=== PATIENT | female | born 1975 | race Caucasian/White ===

== ENCOUNTER 2019-11-20 08:40 | Emergency (ER) | payer OTHER, SELFPAY ==
[~2019-11-20] VITALS: Ht 152.4 cm; Wt 83.9 kg
[2019-11-20 08:55] VITALS: BP 96/48
--- NOTE | 2019-11-20 08:55 | NUR ---
Chilo pepe in [facility] - 11/20/19 at 0957 by EVELYN TENT
--- NOTE | 2019-11-20 09:00 | NUR ---
COVID SWAB DONE.
--- NOTE | 2019-11-20 09:02 | NUR ---
C/O COUGH,FEVER, HEADACHE, LOSS OF TASTE, N/V X 4 DAYS. MOTHER IN LAW HAS COVID +. PT TOOK IBUPROFEWN AT 6 AM TODAY. 96.6, P 85,R 18, [id number]% AT THIS TIME. MED HX: DENIES
[2019-11-20] MEDS ORDERED: ONDANSETRON 4 MG ODT PO ONE (09:30)
[2019-11-20] MEDS ORDERED: ACETAMINOPHEN 325 MG TAB PO ONE (09:30)
--- NOTE | 2019-11-20 10:27 | NUR ---
Patient discharged with v/s stable. Written and verbal after care instructions given and explained. Patient alert, oriented and verbalized understanding of instructions. Ambulatory with steady gait. All questions addressed prior to discharge. ID band removed. Patient advised to follow up with PMD. Rx of TYLENOL &ZOFRAN given. Patient educated on indication of medication including possible reaction and side effects. Opportunity to ask questions provided and answered.
[2019-11-20 10:29] VITALS: BP 110/65
--- NOTE | 2019-11-23 06:25 | NUR ---
LAB WALK IN TO ED GAVE PT RESULT OF SARS COV2 NASOPHARENGEAL, RESULT INDETERMINE. COPY RESULT GIVEN TO HIEN HERRMANN
== END 2019-11-20 10:27 | disposition home or self-care (01) ==
LOC: MED 08:40 → EEVIPCON 08:40 → MED 10:27
DX: B34.9 Viral infection, unspecified (principal); Z20.828 Contact with and (suspected) exposure to other viral communicable diseases
CPT/HCPCS: 99283; Q0162; U0003